=== PATIENT | male | born 1990 | race Asian ===

== ENCOUNTER 2024-12-04 07:39 | Emergency (ER) | payer SELFPAY ==
[~2024-12-04] VITALS: Ht 177.8 cm; Wt 75.0 kg
[2024-12-04] MEDS ORDERED: Morphine Sulfate 4 MG/1 ML Injection IV ONE (08:05)
[2024-12-04 08:37] LABS: BASOPHILS ABSOLUTE AUTO 0.03 K/mm3 (0.00-0.23); BASOPHILS PERCENT AUTO 0 % (0-2); EOSINOPHILS ABSOLUTE AUTO 0.06 K/mm3 (0.00-0.68); EOSINOPHILS PERCENT AUTO 1 % (0-6); Hematocrit 38.5 % (37.0-53.0); Hemoglobin 13.1 g/dL (13.5-17.5); IMMATURE GRAN ABSOLUTE AUTO 0.07 K/mm3 (0.00-0.10); IMMATURE GRAN PERCENT AUTO 1 % (0-1); LYMPHOCYTES ABSOLUTE AUTO 1.06 K/mm3 (0.84-5.20); LYMPHOCYTES PERCENT AUTO 9 % (21-46); MONOCYTES ABSOLUTE AUTO 0.95 K/mm3 (0.16-1.47); MONOCYTES PERCENT AUTO 8 % (4-13); Mean Corpuscular HGB Conc 34.0 g/dL (31.5-36.5); Mean Corpuscular Volume 84 fL (80-100); NEUTROPHILS ABSOLUTE AUTO 10.34 K/mm3 (1.96-9.15); NEUTROPHILS PERCENT AUTO 83 % (41-73); NRBC ABSOLUTE 0.00 K/mm3 (0.00-0.02); NRBC Auto 0.0 /100 WBC (0.0-0.2); RDW Coefficient Variation 13.2 % (11.7-14.2); RDW Standard Deviation 40.6 fL (35.1-46.3)
[2024-12-04 08:55] LABS: Platelet Count 156 K/mm3 (150-400)
[2024-12-04 09:13] LABS: Magnesium, Blood 2.0 mg/dL (1.6-2.4)
[2024-12-04 09:15] LABS: Alanine Aminotransfer (ALT/SGP 42.0 U/L (12-78); Albumin, Blood 3.5 g/dL (3.4-5.0); Albumin/Globulin Ratio 1.1 (0.8-1.8); Anion Gap 9.0 mmol/L (3-11); Aspartate Aminotrans (AST/SGOT 73.0 U/L (12-37); Bilirubin, Total 1.1 mg/dL (0.1-1.0); Blood Urea Nitrogen 15.0 mg/dL (8-24); CO2, Blood 23.0 mmol/L (21-32); Calcium, Blood 8.1 mg/dL (8.5-10.1); Chloride, Blood 105.0 mmol/L (98-108); Creatinine, Blood 1.06 mg/dL (0.60-1.20); Globulin, Blood 3.2 g/dL (2.2-4.0); Glucose, Blood 178.0 mg/dL (70-99); Potassium, Blood 4.3 mmol/L (3.5-5.5); Sodium, Blood 133.0 mmol/L (136-145); Total Protein, Blood 6.7 g/dL (6.4-8.2)
[2024-12-04] MEDS ORDERED: CEPH500 PO (09:58)
[2024-12-04] MEDS ORDERED: Bacitracin Zinc Oint 1GRAM UD Packet TOP ONE ×2 (11:15→11:35)
[2024-12-04] MEDS ORDERED: Bacitracin Ointment 30 GM TOP ONE (11:30)
== END 2024-12-04 11:49 | disposition home or self-care (01) ==
LOC: ER 07:39
PROVIDERS: Student in an Organized Health Care Education/Training Program
DX: S01.01XA Laceration without foreign body of scalp, initial encounter (principal); S80.12XA Contusion of left lower leg, initial encounter; S80.11XA Contusion of right lower leg, initial encounter; E87.1 Hypo-osmolality and hyponatremia; Z88.2 Allergy status to sulfonamides; W17.81XA Fall down embankment (hill), initial encounter
CPT/HCPCS: 12014; 70450; 70486; 72125; 73562-LT; 73562-RT; 73610; 80053; 82550; 83735; 85025; 96374-59; 99284-25; A9270; J2270; J7120